=== PATIENT | female | born 1990 | race Caucasian/White ===

== ENCOUNTER → 2021-04-26 | Outpatient (CLI) | payer OTHER | LOC: KOH-I 11:45 | DX: M54.50 Low back pain, unspecified (principal); M54.6 Pain in thoracic spine | CPT/HCPCS: 72070; 72100 ==

== ENCOUNTER → 2022-01-04 | Outpatient (CLI) | payer OTHER | LOC: KOH-I 16:10 | DX: M54.2 Cervicalgia (principal); M54.6 Pain in thoracic spine; M54.50 Low back pain, unspecified | CPT/HCPCS: 72082 ==

== ENCOUNTER → 2022-01-06 | Outpatient (CLI) | payer OTHER | LOC: KOH-I 10:36 | DX: R51.9 Headache, unspecified (principal) | CPT/HCPCS: 70450; 72125 ==

== ENCOUNTER 2022-02-18 18:52 | Emergency (ER) | payer OTHER ==
[2022-02-18 20:42] LABS: HEMOGLOBIN 13.6 gm/dl (12.3-15.3); RED BLOOD COUNT 4.32 M/UL (4.00-5.10); WHITE BLOOD COUNT 4.1 K/UL (4.5-11.0)
[2022-02-18 21:09] LABS: BUN/CREATININE RATIO 14 (0-10)
== END 2022-02-18 23:43 | disposition home or self-care (01) ==
LOC: ER1 18:52
PROVIDERS: Family Medicine
DX: U07.1 COVID-19 (principal); F17.200 Nicotine dependence, unspecified, uncomplicated
CPT/HCPCS: 80053; 85025; 99283; U0002